=== PATIENT | female | born 1970 | race Caucasian/White ===

== ENCOUNTER 2016-02-29 01:30 | Emergency (ER) | payer SELFPAY ==
--- NOTE | 2016-02-29 01:56 | ED Physician Chart ---
Chief Complaint/HPI - Patient Information Date Seen:: 02/29/16 Time Seen:: 01:38 Chief Complaint:: earache History of Present Illness:: 45-year-old female, complains of acute, constant, aching, nonradiating, moderate to severe, 9 out of 10, bilateral ear pain since yesterday. Pain initially started on the left side and has now progressed to both sides. Has associated sore throat and nasal congestion 7 days. Allergies:: Allergies Allergy/AdvReac Type Severity Reaction Status Date / Time No Known Allergies Allergy Verified 02/29/16 01:46 Vitals:: Vital Signs - 8 hr 02/29/16 01:35 Temp 98.1 F HR 76 RR 18 BP 151/84 O2 Sat % 98 Historian:: Patient Review:: Nurse's Note Reviewed Review of Systems - Review of Systems Other: Complete system review otherwise unremarkable except as noted in HPI. Past Medical History - Past Medical History Past Medical History: No significant medical hx Family History: None Social History: Non Smoker, No Alcohol, No Drug Use, Employed Surgical History: None Psychiatricy History: None Medication: None Family Medical History - Family Member Mother Ethnicity: Living Status: Still Living Hx Family Cancer: No Hx Family Coronary Artery Disease: No Hx Family Congestive Heart Failure: No Hx Family Hypertension: No Hx Family Stroke: No Hx Family Diabetes: Yes Physical Exam - Physical Examination Other:: INITIAL VITAL SIGNS: Reviewed by me GENERAL: Alert and interactive. No acute distress HEAD: Head is normocephalic and atraumatic EYES: EOMI. . No scleral icterus. No conjunctival injection ENT: Bilateral tympanic membranes are erythematous and bulging. Right lateral canals are erythematous slight exudate. Posterior pharynx is erythematous. Tonsils are +1 edematous. NECK: Supple. + bilateral anterior cervical adenopathy greater on the right than left. Full range of motion RESPIRATORY: No tachypnea. Clear breath sounds bilaterally. No wheezing, rales, or rhonchi CV: Regular rate and rhythm. No murmurs, rubs, or gallops ABDOMEN: Soft, non-distended, non-tender. No guarding. No rebound. No masses. EXTREMITIES: No deformity. No cyanosis. No edema. SKIN: Warm and dry. No obvious rashes. NEUROLOGIC: Alert and oriented. Face is symmetric. Speech is normal. Moves all extremities equally. Motor and sensory distally intact. ED Septic Shock - . Is Septic Shock (SBP<90, OR Lactate>4 mmol\L) present?: No - <6hrs of presentation: Vital Signs: Vital Signs - 8 hr 02/29/16 01:35 Temp 98.1 F HR 76 RR 18 BP 151/84 O2 Sat % 98 Reassessment (Disposition) - Reassessment Reassessment:: The patient's blood pressure was elevated (>120/80) but appears stable without evidence of hypertensive emergency or urgency. The patient was counseled about the risks hypertension urged to pursue outpatient monitoring and therapy within a week with her primary care physician. Patient has bilateral otitis media combined with upper respiratory infection and what looks like a slight otitis externa. We gave Decadron and Toradol here in the ER. There was some improvement of symptoms. We provided a prescription for amoxicillin, ibuprofen, Flonase, prednisone, Cortisporin. Recommended follow-up with PCP in 2-3 days. Gave return to ER precautions. Patient says she understands and agrees with the plan. Reassessment Condition:: Improved - Diagnosis Diagnosis:: Bilateral acute otitis media Bilateral acute otitis externa Acute upper respiratory infection Acute pharyngitis Elevated blood pressure without diagnosis of hypertension - Aftercare/Follow up Instructions Aftercare/Follow-Up Instructions:: Counseled pt regarding lab results/diagnosis & need follow up, Refer to Discharge Instructions Medication Prescribed:: Amoxicillin 500 mg 3 times a day Flonase 2 sprays each nostril daily 20 days Ibuprofen 600 mg 3 times a day when necessary Prednisone 10 mg daily 5 days - Patient Disposition Discharge/Transfer:: Home Time:: 02:08 Condition at Disposition:: Improved ED Discharge Plan - Patient Disposition Prescriptions: Amoxicillin [Amoxil] 500 mg PO TID #30 cap Fluticasone Propionate Nasal [Flonase] 1 spr NS DAILY #1 bottle Hc/Neomyxin Sulf/Polymyxin B [Cortisporin Otic Soln] 4 drop EACH EAR TID #1 bottle Ibuprofen [Motrin] 600 mg PO TID #30 tab predniSONE [Deltasone] 10 mg PO DAILY #5 tab Instructions: Otitis Media, Adult, [id number], Middle Ear Infection (Otitis Media)-Sports[facility] Additional Instructions: FILL YOUR PRESCRIPTION AND TAKE IT DIRECTED. FOLLOW UP WITH YOUR REGULAR DOCTOR IN 1-2 DAYS IF YOUR NOT FEELING ANY BETTER.
== END 2016-02-29 02:30 | disposition home or self-care (01) ==
LOC: ER 01:30
DX: H60.93 Unspecified otitis externa, bilateral (principal); H66.93 Otitis media, unspecified, bilateral; J06.9 Acute upper respiratory infection, unspecified; R03.0 Elevated blood-pressure reading, without diagnosis of hypertension
CPT/HCPCS: 99283; 96372; J8540; J1885; Z7502